=== PATIENT | male | born 1940 | race Caucasian/White ===

== ENCOUNTER → 2021-06-29 10:57 | Outpatient (CLI) | payer MEDICARE, OTHER, SELFPAY ==
--- NOTE | 2021-06-29 11:00 | DI.RAD.S_ITS ---
PROCEDURE: XR KNEE RT 3V INDICATIONS: R knee pain TECHNIQUE: 3 views of the knee were acquired. COMPARISON: None. FINDINGS: Bones: No fractures or dislocations. No suspicious bony lesions. There is moderate to severe medial and moderate lateral femorotibial joint space narrowing seen, with associated remodeling changes including subchondral sclerosis and osteophyte formation along the jointline. On the sunrise view, there is at least moderate medial patellofemoral joint space narrowing seen. Osteophyte formation can be seen along the margins of the patella. Soft tissues: There is a mild joint effusion. No suspicious soft tissue calcifications. IMPRESSION: Tricompartmental degenerative change, without an acute abnormality identified. Small joint effusion. If it would be helpful for clinical management decision making, please consider a dedicated, scheduled knee MRI for further evaluation (assuming that there is no contraindication). Dictated by: Kain Johnson M.D. on 06/29/2021 at 10:16 Approved by: Kain Johnson M.D. on 06/29/2021 at 10:17
== END ==
PROVIDERS: Family Provider Family Medicine; PCP Family Medicine; Referring Provider Student in an Organized Health Care Education/Training Program; Visit Provider Student in an Organized Health Care Education/Training Program
DX: M25.561 Pain in right knee (principal); M25.461 Effusion, right knee
CPT/HCPCS: 73562

== ENCOUNTER 2023-06-03 09:24 | Emergency (ER) | payer MEDICARE, OTHER, SELFPAY ==
[2023-06-03] VITALS (15 sets, daily range): BP systolic 99–158; BP diastolic 56–101; PULSE 62–82; RESP 14–32; TEMP 36.6; O2SAT 93–99; BMI 30.9
--- NOTE | 2023-06-03 10:04 | DI.RAD.S_ITS ---
PROCEDURE: XR CHEST 1V INDICATIONS: Shortness of breath TECHNIQUE: One view of the chest was acquired. COMPARISON: None. FINDINGS: Surgical changes and devices: None. Lungs and pleura: Lungs are clear. No pleural effusions or pneumothorax. Mediastinum: Mediastinal contours appear normal. Heart size is normal. Bones and chest wall: No suspicious bony lesions. Overlying soft tissues appear unremarkable. IMPRESSION: No acute cardiopulmonary abnormality is seen. Dictated by: Destin Sheets M.D. on 06/03/2023 at 11:10 Approved by: Destin Sheets M.D. on 06/03/2023 at 11:10
[2023-06-03 10:29] LABS: Add Manual Diff / Slide Review NO; Basophils Absolute Auto 100 /uL (0-100); Basophils Percent Auto 0.9 % (0-2); Eosinophils Absolute Auto 200 /uL (0-450); Eosinophils Percent Auto 1.8 % (2-4); Hematocrit 42.6 % (41-53); Hemoglobin 14.1 g/dL (13.5-17.5); Lymphocytes Absolute Auto 2500 /uL (1100-4500); Lymphocytes Percent Auto 20.9 % (25-40); Mean Corpuscular HGB Conc 33.2 % (30-36); Mean Corpuscular Hemoglobin 30.7 PG (26-34); Mean Corpuscular Volume 92.6 fL (80-100); Monocytes Absolute Auto 1200 /uL (0-900); Monocytes Percent Auto 10.4 % (3-14); Neutrophils Absolute Auto 7800 /uL (1500-7000); Platelet Count 196 X10^3/uL (150-400); Red Cell Distribution Width 13.5 % (11.6-14.8); White Blood Cell Count 11.8 X10^3/uL (4.5-11.0)
[2023-06-03 10:39] LABS: INR 2.1 (0.9-1.3); Prothrombin Time 24.8 SECONDS (9.4-12.5)
[2023-06-03 10:46] LABS: Lactate (Lactic Acid) 1.3 mmol/L (0.7-2.1)
[2023-06-03 10:47] LABS: Alanine Aminotransferase 38 IU/L (<50); Albumin 4.1 g/dL (3.5-5.0); Albumin Globulin Ratio 1.2 (1.0-2.8); Alkaline Phosphatase 275 U/L (38-126); Aspartate Aminotransferase 50 IU/L (17-59); BUN Creatinine Ratio 16.7 (6-22); Bilirubin Total 1.4 mg/dL (0.2-1.3); Blood Urea Nitrogen 16 mg/dL (9-20); Calcium 9.2 mg/dL (8.4-10.2); Carbon Dioxide 30 mmol/L (22-32); Chloride 99 mmol/L (98-107); Estimated Glomerular Filt Rate > 60 mL/min (>60); Globulin 3.4 g/dL (1.7-4.1); Glucose 130 mg/dL (80-110); HEMOLYSIS < 15 (0-50); Lipase 121 U/L (23-300); Potassium 4.2 mmol/L (3.4-5.1); Sodium 134 mmol/L (137-145); Total Protein 7.5 g/dL (6.3-8.2)
--- NOTE | 2023-06-03 10:56 | ED_ITS ---
HPI - General Adult General Chief complaint: Abdominal Pain Stated complaint: colon blockage per pt Time Seen by Provider: 06/03/23 10:38 Source: patient Mode of arrival: Ambulatory History of Present Illness HPI narrative: 82-year-old male with history of smoking, hypertension, hyperlipidemia, asthma, thrombocytopenia, atrial flutter, on Xarelto, metoprolol, Lasix presents with nausea on clarification. History clarified from triage. Patient states he was recently treated with Augmentin for presumed diverticulitis a few weeks ago. He states he took 1 week of Augmentin 3 weeks ago, finishing the course 2 weeks ago. Since then, he is not having abdominal pain on clarification, but rather does have early satiety and nausea with eating. He denies vomiting, fevers or chills, constipation or diarrhea, red or black in stool, lightheadedness or passing out, chest pain, shortness breath. However, he does have history of prior diverticulitis requiring surgery. He is on Xarelto. No recent CTs per patient. No other new concerns. He denies substantial alcohol use, smoking, or substantial NSAID use. Related Data Home Medications Medication Instructions Recorded Confirmed latanoprost 0.005 % eye drops 1 drp [facility] ##0 03/13/12 05/15/21 (Xalatan) magnesium oxide 400 mg (241.3 mg 400 mg PO ##0 07/16/16 05/15/21 magnesium) tablet cyanocobalamin (vitamin B-12) 1,000 mcg PO ##0 10/21/16 05/15/21 1,000 mcg tablet,extended release rivaroxaban 20 mg tablet (Xarelto) 20 mg PO DAILY 12/26/17 05/15/21 Previous Rx's Medication Instructions Recorded fluticasone 250 mcg-salmeterol 50 1 puff INH BID #3 puffs 10/20/16 mcg/dose blistr powdr for inhalation (Advair Diskus) lisinopril 20 mg tablet 20 mg PO QDAY #90 tabs 07/14/16 metoprolol tartrate 50 mg tablet 50 mg PO BID #180 tabs 07/14/16 potassium chloride 10 mEq 20 meq (2 x 10 mEq) PO QDAY #180 07/14/16 tablet,extended release (K-Tab) tabs allopurinol 300 mg tablet 300 mg PO QDAY #90 tabs 08/18/16 furosemide 40 mg tablet 40 mg PO QDAY #90 tabs 10/11/16 atorvastatin 20 mg tablet (Lipitor) 20 mg PO QDAY #30 tabs 12/13/16 ondansetron 4 mg disintegrating 4 mg PO Q8H #10 tabs 06/03/23 tablet ondansetron 4 mg disintegrating 4 mg PO Q8H #15 tabs 06/03/23 tablet Allergies Allergy/AdvReac Type Severity Reaction Status Date / Time No Known Drug Allergies Allergy Unverified 06/29/21 10:31 Review of Systems Review of Systems Narrative: Constitutional: no fever, no chills Eyes: no visual disturbance, no discharge Ears, Nose, Mouth, Throat: no rhinorrhea, no sore throat Cardiovascular: no chest pain, no palpitations Respiratory: no cough, no shortness of breath Gastrointestinal: no abdominal pain, no vomiting, no diarrhea Genitourinary: no dysuria, no hematuria Musculoskeletal: no back pain, no neck stiffness Skin: no rash, no wound Neurological: no focal weakness, no focal numbness Patient History Surgical History Status post knee surgery Family History Father Heart disease Mother Heart disease Social History Smoking Status: Never smoker alcohol intake: current Smoking Status: Never smoker Substance Use Type: does not use Exam Narrative Exam Narrative: Const: no acute distress, non toxic appearing; calm, conversant, pleasant Eyes: PERRLA, EOMI ENT: mucous membranes moist Neck: supple, non-tender Resp: no respiratory distress, clear to auscultation bilaterally Card: regular rate and rhythm, no murmurs Abd: non tender diffusely, no rigidity or rebound or guarding Back: no T or L spine tenderness, no CVA tenderness bilaterally Extrem: no deformities, no swelling bilateral lower extremities Neuro: ANOx4, professor of philosophy grossly intact, grossly intact sensation and strength all extremities Skin: no rash, warm and dry Initial Vital Signs Initial Vital Signs: Vital Signs Temperature 97.8 F 06/03/23 09:45 Pulse Rate 82 06/03/23 09:45 Respiratory Rate 24 06/03/23 09:45 Blood Pressure 139/99 H 03/01/24 09:45 Pulse Oximetry 97 06/03/23 09:45 Oxygen Delivery Method Room Air 06/03/23 09:45 Course Course Course Narrative: This presentation is most suggestive of gastritis, peptic ulcer disease, possibly recurring diverticulitis, though I have considered a broad differential including but not limited to bowel obstruction, perforation, abscess, pancreatitis, medication side effect, enteritis, among others. While he has benign abdomen here currently, given his prior history of diverticulitis requiring surgery, I do feel he merits CT imaging. I am obtaining labs, urinalysis, with anticipation of CT. I am giving fluids. He declines nausea or pain medications currently. Patient is stable. Patient afebrile and well perfused. Labs notable for leukocytosis, no anemia or thrombocytopenia. INR elevated. Borderline hyponatremia, with elevated bilirubin, alkaline phosphatase present on chemistry, with normal AST and ALT and no abdominal tenderness. Troponin reassuring. BNP mildly elevated. Lipase reassuring. Urine without clear evidence of infection, in the setting of no urinary symptoms. CT however shows what is very concerning for metastatic pancreatic cancer. At 2:55PM, I spoke with Oncology Dr. Cardenas, reviewing case; he states he will see patient outpatient soon. He is with [facility]. I discussed patient's case with Oncology, and updated patient. We are working to arrange close follow-up for him. He understands importance of calling [facility] today, whose physician team I spoke with. CXR read by radiology below: FINDINGS: Surgical changes and devices: None. Lungs and pleura: Lungs are clear. No pleural effusions or pneumothorax. Mediastinum: Mediastinal contours appear normal. Heart size is normal. Bones and chest wall: No suspicious bony lesions. Overlying soft tissues appear unremarkable. IMPRESSION: No acute cardiopulmonary abnormality is seen. Dictated by: Destin Sheets M.D. on 06/03/2023 at 11:10 CT A/P (copy given to pt): FINDINGS: Image quality: Diagnostic Lower chest: Numerous small partially seen pulmonary nodules. Right pleural thickening. No pleural effusions. Prominent periesophageal lymph nodes, possibly reactive. Small hiatal hernia. Liver: Numerous small liver lesions compatible with metastatic disease. Gallbladder and biliary system: Unremarkable, nondilated Pancreas: Pancreatic tail 3.1 cm mass. Spleen: Unremarkable Adrenals: No nodules Kidneys: Moderately atrophic bilaterally. No hydronephrosis. Vessels and lymph nodes: There are borderline enlarged upper abdominal and retroperitoneal lymph nodes, for example at the mina hepatis measuring 0.8 cm in short axis. No abdominal aortic aneurysm. Bowel and peritoneum: No evidence of small bowel obstruction. Colonic diverticula. There are bowel suture lines. No pathologic ascites Body wall: Postsurgical changes Pelvis: Bladder is unremarkable. Heterogeneous, mildly enlarged prostate, correlate with PSA Bones: Degenerative findings, no acute or suspicious findings. 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 Indeterminate borderline enlarged upper abdominal lymph nodes are present. Indeterminate small pulmonary nodules are seen at the lung bases. Consider oncologic follow-up for staging. Dictated by: Jose Luis Pavon M.D. on 06/03/2023 at 11:48 On review, I am concerned metastatic pancreatic cancer is likely driving patient's presentation. I prescribed him Zofran, and he understands importance of strict follow up with return precautions. He is tolerating p.o., currently has benign abdomen, and appears comfortable. Discharged in stable condition in this setting. Repeat exam and vital signs reassuring. Questions answered. Plan reviewed. Patient discharged in stable condition. Orders Ordered: ED Orders 06/03/23 10:04 XR chest 1V Stat Measure peak expiratory flow ONCE RT Consult Eval and Treat NOW 06/03/23 10:10 EKG-12 Lead Stat 06/03/23 10:20 Complete Blood Count AUTO DIFF Stat Comprehensive Metabolic Panel Stat Lactate (Lactic Acid) Stat Lipase Stat NT-proBNP (BNP-Adult 18+) Stat Prothrombin Time INR Stat Troponin I Stat 06/03/23 11:10 CT abdomen pelvis w con Stat 06/03/23 11:21 Urine Culture Stat Urine Microscopic Stat Discontinued Medications Sodium Chloride (Normal Saline 0.9%) 1,000 mls @ 1,000 mls/hr IV BOLUS ONE Stop: 06/03/23 12:10 Last Infusion: 06/03/23 12:22 Dose: Infused Documented By: Admin: 06/03/23 11:13 Dose: 1,000 mls/hr Documented By: LILIA Ondansetron HCl (Ondansetron 4 Mg Odt) 4 mg PO NOW PRN PRN Reason: Nausea And Vomiting Ondansetron HCl (Ondansetron 4 Mg/2 Ml Inj) 4 mg IV NOW PRN PRN Reason: Nausea And Vomiting Ondansetron HCl (Ondansetron 4 Mg Odt Prepack) 1 bottle MISC DIRECTED ONE Stop: 06/03/23 15:14 Last Admin: 06/03/23 15:29 Dose: 1 bottle Documented By: CHEVY Vital Signs Vital signs: Vital Signs - 8 hr 06/03/23 11:00 06/03/23 11:00 06/03/23 11:09 Pulse Rate 70 Respiratory Rate 22 Blood Pressure 99/67 128/73 Pulse Oximetry 96 Oxygen Delivery Method Room Air 06/03/23 11:09 06/03/23 11:26 06/03/23 11:26 Pulse Rate 71 67 Respiratory Rate 32 H 14 Blood Pressure 131/68 Pulse Oximetry 95 97 Oxygen Delivery Method 06/03/23 11:30 06/03/23 11:30 06/03/23 12:00 Pulse Rate 66 62 Respiratory Rate 14 16 Blood Pressure 117/69 Pulse Oximetry 97 98 Oxygen Delivery Method Room Air 06/03/23 12:00 06/03/23 12:30 06/03/23 12:30 Pulse Rate 64 Respiratory Rate 16 Blood Pressure 138/65 138/64 Pulse Oximetry 97 Oxygen Delivery Method Room Air 06/03/23 13:35 06/03/23 13:36 06/03/23 13:36 Pulse Rate 64 66 Respiratory Rate 28 H 21 Blood Pressure 137/71 Pulse Oximetry 93 98 Oxygen Delivery Method Room Air 06/03/23 14:00 06/03/23 14:00 06/03/23 14:30 Pulse Rate 64 62 Respiratory Rate 16 16 Blood Pressure 158/72 H Pulse Oximetry 98 99 Oxygen Delivery Method Room Air 06/03/23 14:30 Pulse Rate Respiratory Rate Blood Pressure 151/77 H Pulse Oximetry Oxygen Delivery Method Medical Decision Making Lab Data 06/03/23 10:20 06/03/23 10:20 Labs: Lab Results 06/03/23 06/03/23 Range/Units 10:20 11:21 WBC 11.8 H (4.5-11.0) X10^3/uL RBC 4.60 (4.5-5.9) X10^6/uL Hgb 14.1 (13.5-17.5) g/dL Hct 42.6 (41-53) % MCV 92.6 (80-100) fL MCH 30.7 (26-34) PG MCHC 33.2 (30-36) % RDW 13.5 (11.6-14.8) % Plt Count 196 (150-400) X10^3/uL Neut % (Auto) 66.0 (50-75) % Lymph % (Auto) 20.9 L (25-40) % [place] % (Auto) 10.4 (3-14) % Eos % (Auto) 1.8 L (2-4) % Baso % (Auto) 0.9 (0-2) % Neut # (Auto) 7800 H (1563-9666) /uL Lymph # (Auto) 2500 (6758-3321) /uL [place] # (Auto) 1200 H (0-900) /uL Eos # (Auto) 200 (0-450) /uL Baso # (Auto) 100 (0-100) /uL PT 24.8 H (9.4-12.5) SECONDS INR 2.1 H (0.9-1.3) Sodium 134 L (137-145) mmol/L Potassium 4.2 (3.4-5.1) mmol/L Chloride 99 (98-107) mmol/L Carbon Dioxide 30 (22-32) mmol/L BUN 16 (9-20) mg/dL Creatinine 0.96 (0.66-1.25) mg/dL Estimated GFR > 60 (>60) mL/min BUN/Creatinine Ratio 16.7 (6-22) Glucose 130 H (80-110) mg/dL Lactate 1.3 (0.7-2.1) mmol/L Calcium 9.2 (8.4-10.2) mg/dL Total Bilirubin 1.4 H (0.2-1.3) mg/dL AST 50 (17-59) IU/L ALT 38 (<50) IU/L Alkaline Phosphatase 275 H (38-126) U/L Troponin I < 0.012 (0.01-0.034) ng/mL NT-Pro-B Natriuret Pep 457 H (<450) pg/mL Total Protein 7.5 (6.3-8.2) g/dL Albumin 4.1 (3.5-5.0) g/dL Globulin 3.4 (1.7-4.1) g/dL Albumin/Globulin Ratio 1.2 (1.0-2.8) Lipase 121 (23-300) U/L Urine RBC None seen (0-5/HPF) Urine WBC 0-1/hpf (0-5/HPF) Ur Squamous Epith Cells 1-5 /hpf (0-5/HPF) Urine Bacteria None seen (None) Hyaline Casts 10-30/lpf (None) Ur Culture Indicated? Specimen cultured Vol Urine Centrifuged Low vol <10ml (spun) A Urine Dip Bedside Urine Glucose Negative Bedside Urine Bilirubin - Negative Bedside Urine Ketone +/- 5 Urine Specific [place] 1.020 Bedside Urine Occult Blood - Negative Bedside Urine pH 6.0 Bedside Urine Protein ++ 100 Bedside Urine Urobilinogen - Negative Bedside Urine Nitrite - Negative Bedside Urine Leukocytes +/- 15 Esterase Point of care testing: Urine Dip Bedside Urine Glucose Negative Bedside Urine Bilirubin - Negative Bedside Urine Ketone +/- 5 Urine Specific [place] 1.020 Bedside Urine Occult Blood - Negative Bedside Urine pH 6.0 Bedside Urine Protein ++ 100 Bedside Urine Urobilinogen - Negative Bedside Urine Nitrite - Negative Bedside Urine Leukocytes +/- 15 Esterase Discharge Plan Departure Patient Disposition: Home Clinical Impression: Abnormal finding on CT scan Instructions: DI for Abdominal Pain-Adult Activity Restrictions/Additional Instructions: It was a pleasure taking care of you today. It is important to fully read and understand the below. Please ask us if you have any questions. We see a very important incidental finding on your CT scan today. I spoke with Dr. Cardenas of [facility] today, who wants to see you. I tried to send a referral but we are having some technical issues. PLEASE CALL THEM AND STATE DR. DENNY SPOKE WITH DR. CARDENAS ABOUT YOU. They should see you soon. Please take your attached CT. No tests or assessments are perfect, and your condition could cap coverer time. If your symptoms change or worsen, it is very important you immediately seek medical care. If you have any new or worsening pain, []shortness of breath, fever, vomiting, confusion, numbness, weakness, or anything else that concerns you, please immediately seek medical care. If you have been prescribed any medications: please read the drug package inserts on how to properly use the medication and any potential side effects. If you had labs (blood tests) or imaging (CT scan or x-rays) done during your visit: please follow up on the results of these with your primary care doctor, as discussed. In addition, please know the results we received today may be preliminary. Our usual practice is to follow up on tests within a few days of a patient's discharge from the Emergency Department and notify you of any changes. These may lead to changes to your treatment plan. However, the best way to obtain and interpret these test results is through your Primary Care Provider. If you need to update your contact information, please stop by the it desktop support technician and alert the Registration personnel before you leave the Emergency Department. Thank you for the opportunity to participate in your healthcare. We are always here and happy to see you in the future. --- PLEASE TAKE THE ATTACHED IMAGING TO YOUR DOCTORS: FINDINGS: Image quality: Diagnostic Lower chest: Numerous small partially seen pulmonary nodules. Right pleural thickening. No pleural effusions. Prominent periesophageal lymph nodes, possibly reactive. Small hiatal hernia. Liver: Numerous small liver lesions compatible with metastatic disease. Gallbladder and biliary system: Unremarkable, nondilated Pancreas: Pancreatic tail 3.1 cm mass. Spleen: Unremarkable Adrenals: No nodules Kidneys: Moderately atrophic bilaterally. No hydronephrosis. Vessels and lymph nodes: There are borderline enlarged upper abdominal and retroperitoneal lymph nodes, for example at the mina hepatis measuring 0.8 cm in short axis. No abdominal aortic aneurysm. Bowel and peritoneum: No evidence of small bowel obstruction. Colonic diverticula. There are bowel suture lines. No pathologic ascites Body wall: Postsurgical changes Pelvis: Bladder is unremarkable. Heterogeneous, mildly enlarged prostate, correlate with PSA Bones: Degenerative findings, no acute or suspicious findings. 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 Indeterminate borderline enlarged upper abdominal lymph nodes are present. Indeterminate small pulmonary nodules are seen at the lung bases. Consider oncologic follow-up for staging. Dictated by: Jose Luis Pavon M.D. on 06/03/2023 at 11:48 Prescriptions: New ondansetron 4 mg tablet,disintegrating 4 mg PO Q8H Qty: 10 0RF ondansetron 4 mg tablet,disintegrating 4 mg PO Q8H Qty: 15 0RF No Action rivaroxaban [Xarelto] 20 mg tablet 20 mg PO DAILY latanoprost [Xalatan] 0.005 % drops 1 drp OPHTH HS Qty: 0 fluticasone propion-salmeterol [Advair Diskus] 250 MCG/50 MCG blister with device 1 puff INH BID Qty: 3 1RF lisinopril 20 MG tablet 20 mg PO QDAY Qty: 90 1RF potassium chloride [K-Tab] 10 MEQ tablet extended release 20 meq PO QDAY Qty: 180 1RF metoprolol tartrate 50 MG tablet 50 mg PO BID Qty: 180 1RF magnesium oxide 400 MG tablet 400 mg PO Qty: 0 allopurinol 300 MG tablet 300 mg PO QDAY Qty: 90 1RF furosemide 40 MG tablet 40 mg PO QDAY Qty: 90 1RF cyanocobalamin (vitamin B-12) 1,000 MCG tablet extended release 1,000 mcg PO Qty: 0 atorvastatin [Lipitor] 20 MG tablet 20 mg PO QDAY Qty: 30 0RF Referrals: Marco Antonio Islas MD [Primary Care Provider] - Stand Alone Forms: Patient Portal/API
[2023-06-03 11:00] LABS: NT-proBNP (BNP-Adult 18+) 457 pg/mL (<450); Troponin I < 0.012 ng/mL (0.01-0.034)
--- NOTE | 2023-06-03 11:10 | DI.CT.S_ITS ---
PROCEDURE: CT ABDOMEN PELVIS W CON INDICATIONS: abdominal discomfort, nausea, recent diverticulitis treatmen TECHNIQUE: After the administration of intravenous contrast, axial sections acquired from the lung bases to the pubic symphysis. Coronal and sagittal reformats were performed. For radiation dose reduction, the following was used: automated exposure control, adjustment of mA and/or kV according to patient size. COMPARISON: None. FINDINGS: Image quality: Diagnostic Lower chest: Numerous small partially seen pulmonary nodules. Right pleural thickening. No pleural effusions. Prominent periesophageal lymph nodes, possibly reactive. Small hiatal hernia. Liver: Numerous small liver lesions compatible with metastatic disease. Gallbladder and biliary system: Unremarkable, nondilated Pancreas: Pancreatic tail 3.1 cm mass. Spleen: Unremarkable Adrenals: No nodules Kidneys: Moderately atrophic bilaterally. No hydronephrosis. Vessels and lymph nodes: There are borderline enlarged upper abdominal and retroperitoneal lymph nodes, for example at the mina hepatis measuring 0.8 cm in short axis. No abdominal aortic aneurysm. Bowel and peritoneum: No evidence of small bowel obstruction. Colonic diverticula. There are bowel suture lines. No pathologic ascites Body wall: Postsurgical changes Pelvis: Bladder is unremarkable. Heterogeneous, mildly enlarged prostate, correlate with PSA Bones: Degenerative findings, no acute or suspicious findings. 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 Indeterminate borderline enlarged upper abdominal lymph nodes are present. Indeterminate small pulmonary nodules are seen at the lung bases. Consider oncologic follow-up for staging. Dictated by: Jose Luis Pavon M.D. on 06/03/2023 at 11:48 Approved by: Jose Luis Pavon M.D. on 06/03/2023 at 11:54
[2023-06-03] MEDS: SODIUM CHLORIDE 0.9% 1,000 ML 1000 ML IV (11:13)
[2023-06-03 11:36] LABS: Urine Volume Low Vol <10mL (spun)
[2023-06-03 11:40] LABS: Bacteria Urine None Seen; Culture Indicated Urine Specimen Cultured; Hyaline Casts Urine 10-30/LPF; RBC Urine None Seen (0-5/HPF); Squamous Epithelial Cell Urine 1-5 /HPF (0-5/HPF); WBC Urine 0-1/HPF (0-5/HPF)
[2023-06-03] MEDS: ONDANSETRON 4 MG ODT PREPACK 1 BOTTLE MISC (15:29)
== END 2023-06-03 15:30 | disposition home or self-care (01) ==
PROVIDERS: Emergency Provider Emergency Medicine; Family Provider Family Medicine; PCP Family Medicine
DX: R93.89 Abnormal findings on diagnostic imaging of other specified body structures (principal); R10.9 Unspecified abdominal pain; R06.02 Shortness of breath; Z79.01 Long term (current) use of anticoagulants
CPT/HCPCS: 36415; 71045; 74177; 80053; 81003; 81015; 83605; 83690; 83880; 84484; 85025; 85610; 87086; 93005; 96360; 99284

== ENCOUNTER 2023-06-08 11:41 | Emergency (ER) | payer MEDICARE, OTHER, SELFPAY ==
[2023-06-08] VITALS (12 sets, daily range): BP systolic 98–134; BP diastolic 53–99; PULSE 56–73; RESP 16–18; TEMP 36.3–36.8; O2SAT 94–97; BMI 30.3
[2023-06-08 12:05] LABS: Urine Volume 10mL (spun)
[2023-06-08 12:08] LABS: Bacteria Urine None Seen; Culture Indicated Urine Cult Not Indicated; Hyaline Casts Urine 0-1/LPF; Mucus Urine 1+ (Negative); RBC Urine None Seen (0-5/HPF); Squamous Epithelial Cell Urine None Seen (0-5/HPF); WBC Urine None Seen (0-5/HPF)
[2023-06-08 12:22] LABS: Add Manual Diff / Slide Review NO; Basophils Absolute Auto 100 /uL (0-100); Eosinophils Absolute Auto 400 /uL (0-450); Eosinophils Percent Auto 2.5 % (2-4); Hematocrit 43.6 % (41-53); Hemoglobin 14.6 g/dL (13.5-17.5); Lymphocytes Absolute Auto 2800 /uL (1100-4500); Lymphocytes Percent Auto 18.7 % (25-40); Mean Corpuscular HGB Conc 33.4 % (30-36); Mean Corpuscular Hemoglobin 31.3 PG (26-34); Mean Corpuscular Volume 93.7 fL (80-100); Monocytes Absolute Auto 1600 /uL (0-900); Monocytes Percent Auto 10.8 % (3-14); Neutrophils Absolute Auto 9800 /uL (1500-7000); Platelet Count 214 X10^3/uL (150-400); Red Blood Cell Count 4.66 X10^6/uL (4.5-5.9); Red Cell Distribution Width 13.4 % (11.6-14.8); White Blood Cell Count 14.7 X10^3/uL (4.5-11.0)
[2023-06-08 12:29] LABS: Alanine Aminotransferase 60 IU/L (<50); Albumin 4.3 g/dL (3.5-5.0); Albumin Globulin Ratio 1.2 (1.0-2.8); Alkaline Phosphatase 314 U/L (38-126); Aspartate Aminotransferase 68 IU/L (17-59); BUN Creatinine Ratio 19.7 (6-22); Bilirubin Total 1.3 mg/dL (0.2-1.3); Blood Urea Nitrogen 24 mg/dL (9-20); Calcium 9.5 mg/dL (8.4-10.2); Carbon Dioxide 33 mmol/L (22-32); Chloride 96 mmol/L (98-107); Estimated Glomerular Filt Rate 58 mL/min (>60); Globulin 3.6 g/dL (1.7-4.1); Glucose 133 mg/dL (80-110); HEMOLYSIS < 15 (0-50); Lipase 188 U/L (23-300); Potassium 3.6 mmol/L (3.4-5.1); Sodium 137 mmol/L (137-145); Total Protein 7.9 g/dL (6.3-8.2)
--- NOTE | 2023-06-08 12:50 | DI.CT.S_ITS ---
PROCEDURE: CT ABDOMEN PELVIS W CON INDICATIONS: IV contrast only/pancreatic cancer/Abdominal distention TECHNIQUE: After the administration of intravenous contrast, axial sections acquired from the lung bases to the pubic symphysis. Coronal and sagittal reformats were performed. For radiation dose reduction, the following was used: automated exposure control, adjustment of mA and/or kV according to patient size. COMPARISON: [facility], CT, CT ABDOMEN PELVIS W CON, 06/03/2023, 11:25. FINDINGS: Image quality: Diagnostic Lower chest: Small pulmonary nodules again seen. No pleural effusions. Small right Bochdalek's hernia. Mild nonspecific distal esophageal wall thickening is present. Normal heart size. Liver: There are numerous metastatic liver lesions as before Gallbladder and biliary system: Unremarkable, nondilated Pancreas: Pancreatic tail 3.1 cm mass again seen Spleen: Nonenlarged Adrenals: No discrete nodules Kidneys: [id number] atrophy. No hydronephrosis Vessels and lymph nodes: Prominent upper abdominal lymph nodes are present, indeterminate, also seen previously. No aneurysmal vessel identified Bowel and peritoneum: No evidence of small bowel obstruction. Fecal loading is mild and similar to prior bowel suture lines are present. Body wall: Postsurgical changes and mild rectus diastasis Pelvis: Bladder is unremarkable. There is thickening at the neck, which may be related to prostate transitional zone hypertrophy. The prostate is not well evaluated on this study. Consider MRI if needed Bones: Degenerative changes. IMPRESSION: No acute changes compared to 06/03/2023. No small bowel obstruction. Mild fecal loading is similar to prior. There are postsurgical bowel changes. No abscess. Pancreatic tail mass and metastatic liver lesions again seen. There are prominent upper abdominal lymph nodes which are indeterminate, as well as small lung nodules. Other findings above. Dictated by: Jose Luis Pavon M.D. on 06/08/2023 at 13:54 Approved by: Jose Luis Pavon M.D. on 06/08/2023 at 14:03
[2023-06-08] MEDS: SODIUM CHLORIDE 0.9% 1,000 ML 1000 ML IV (13:19)
--- NOTE | 2023-06-08 13:25 | ED_ITS ---
HPI - Abdominal Pain General Chief Complaint: Abdominal Pain Stated Complaint: stomach blocked no bowel movement Time Seen by Provider: 06/08/23 12:46 Source: patient Mode of arrival: Ambulatory History of Present Illness HPI narrative: Patient here for complaints decreased bowel movements since Tuesday. Patient just seen here recently and CT showed new finding of pancreatic cancer. Patient has appointment next Tuesday with oncology services. He denies denies any abdominal pain no nausea or vomiting diarrhea. He is concerned that he is constipated. Again no pain. Last bowel movement was Tuesday. Patient denies any back pain or chest pain. Related Data Home Medications Medication Instructions Recorded Confirmed latanoprost 0.005 % eye drops 1 drp [facility] HS ##0 03/13/12 05/15/21 (Xalatan) magnesium oxide 400 mg (241.3 mg 400 mg PO ##0 07/16/16 05/15/21 magnesium) tablet cyanocobalamin (vitamin B-12) 1,000 mcg PO ##0 10/21/16 05/15/21 1,000 mcg tablet,extended release rivaroxaban 20 mg tablet (Xarelto) 20 mg PO DAILY 12/26/17 05/15/21 Previous Rx's Medication Instructions Recorded fluticasone 250 mcg-salmeterol 50 1 puff INH BID #3 puffs 01/21/ mcg/dose blistr powdr for inhalation (Advair Diskus) lisinopril 20 mg tablet 20 mg PO QDAY #90 tabs 07/14/16 metoprolol tartrate 50 mg tablet 50 mg PO BID #180 tabs 07/14/16 potassium chloride 10 mEq 20 meq (2 x 10 mEq) PO QDAY #180 07/14/16 tablet,extended release (K-Tab) tabs allopurinol 300 mg tablet 300 mg PO QDAY #90 tabs 08/18/16 furosemide 40 mg tablet 40 mg PO QDAY #90 tabs 10/11/16 atorvastatin 20 mg tablet (Lipitor) 20 mg PO QDAY #30 tabs 12/13/16 ondansetron 4 mg disintegrating 4 mg PO Q8H #10 tabs 06/03/23 tablet ondansetron 4 mg disintegrating 4 mg PO Q8H #15 tabs 06/03/23 tablet ondansetron 4 mg disintegrating 4 mg PO Q8H PRN nausea and 06/08/23 tablet vomiting #20 tabs Allergies Allergy/AdvReac Type Severity Reaction Status Date / Time No Known Drug Allergies Allergy Unverified 06/29/21 10:31 Review of Systems Review of Systems Narrative: GENERAL: negative chills, fatigue, malaise, fever, sweats. HEENT: negative sinus pain, ear pain, sore throat RESPIRATORY: negative dyspnea, cough CARDIOVASCULAR: negative chest pain, palpitations GASTROINTESTINAL: negative nausea, vomiting, abdominal pain : negative dysuria, frequency, hematuria MUSCULOSKELETAL: negative muscle or bony pain SKIN: negative rash, skin lesions NEUROLOGIC: negative weakness, numbness ROS Unobtainable: All systems reviewed & are unremarkable except as noted in HPI and below Patient History Surgical History Status post knee surgery Family History Father Heart disease Mother Heart disease Social History Smoking Status: Never smoker alcohol intake: current Smoking Status: Never smoker Substance Use Type: does not use Exam Narrative Exam Narrative: GENERAL: in no distress, not toxic not dyspneic HEAD: Normocephalic. EYES: Pupils equal round ENT: Mucous membranes moist. NECK: Trachea midline. CARDIOVASCULAR: Regular rate and rhythm RESPIRATORY: Clear to auscultation. Breath sounds equal bilaterally. No wheezes, rales, or rhonchi. GASTROINTESTINAL: Abdomen soft, non-tender, bowel sounds are present. No peritoneal signs. No pain out of proportion to exam. EXTREMITIES: No gross deformities. BACK: No flank tenderness. NEURO: AOx4. SKIN: Warm and dry PSYCH: Not anxious, is cooperative Initial Vital Signs Initial Vital Signs: Vital Signs Temperature 97.4 F L 06/08/23 11:43 Pulse Rate 72 06/08/23 11:43 Respiratory Rate 18 06/08/23 11:43 Blood Pressure 134/99 H 06/08/23 11:43 Pulse Oximetry 97 06/08/23 11:43 Oxygen Delivery Method Room Air 06/08/23 11:43 Course Orders Ordered: ED Orders 06/08/23 11:50 Urine Microscopic Stat 06/08/23 12:10 Complete Blood Count AUTO DIFF Stat Comprehensive Metabolic Panel Stat Lipase Stat 06/08/23 12:38 EKG-12 Lead Stat 06/08/23 12:50 CT abdomen pelvis w con Stat Discontinued Medications Acetaminophen (Acetaminophen 325 Mg Tablet) 975 mg PO NOW ONE Stop: 06/08/23 15:09 Sodium Chloride (Normal Saline 0.9%) 1,000 mls @ 1,000 mls/hr IV BOLUS ONE Stop: 06/08/23 13:49 Last Infusion: 06/08/23 14:50 Dose: Infused Documented By: Admin: 06/08/23 13:19 Dose: 1,000 mls/hr Documented By: IRMA Ondansetron HCl (Ondansetron 4 Mg/2 Ml Inj) 4 mg IV NOW PRN PRN Reason: Nausea And Vomiting Ondansetron HCl (Ondansetron 4 Mg Odt) 4 mg PO NOW PRN PRN Reason: Nausea And Vomiting Vital Signs Vital signs: Vital Signs - 8 hr 06/08/23 11:43 06/08/23 11:55 06/08/23 11:56 Temperature 97.4 F L Pulse Rate 72 73 68 Respiratory Rate 18 Blood Pressure 134/99 H Pulse Oximetry 97 97 Oxygen Delivery Method Room Air 06/08/23 11:56 06/08/23 12:00 06/08/23 12:00 Temperature Pulse Rate 66 Respiratory Rate Blood Pressure 119/74 118/59 L Pulse Oximetry 94 Oxygen Delivery Method Room Air 06/08/23 12:30 06/08/23 12:30 06/08/23 13:00 Temperature Pulse Rate 60 65 Respiratory Rate Blood Pressure 99/57 L Pulse Oximetry 97 97 Oxygen Delivery Method Room Air 06/08/23 13:00 06/08/23 13:32 06/08/23 13:33 Temperature Pulse Rate 64 Respiratory Rate Blood Pressure 98/53 L 130/76 Pulse Oximetry 94 Oxygen Delivery Method Room Air 06/08/23 13:33 06/08/23 14:00 06/08/23 14:00 Temperature Pulse Rate 64 60 Respiratory Rate Blood Pressure 133/69 Pulse Oximetry 94 95 Oxygen Delivery Method Room Air Room Air 06/08/23 14:30 06/08/23 14:30 06/08/23 14:30 Temperature 98.2 F Pulse Rate 60 Respiratory Rate Blood Pressure 134/69 Pulse Oximetry 97 Oxygen Delivery Method 06/08/23 14:35 06/08/23 14:40 Temperature Pulse Rate 56 L 63 Respiratory Rate 16 Blood Pressure Pulse Oximetry 97 97 Oxygen Delivery Method Room Air MDM - Abdominal Pain Lab Data 06/08/23 12:10 06/08/23 12:10 Labs: Lab Results 06/08/23 06/08/23 Range/Units 11:50 12:10 WBC 14.7 H (4.5-11.0) X10^3/uL RBC 4.66 (4.5-5.9) X10^6/uL Hgb 14.6 (13.5-17.5) g/dL Hct 43.6 (41-53) % MCV 93.7 (80-100) fL MCH 31.3 (26-34) PG MCHC 33.4 (30-36) % RDW 13.4 (11.6-14.8) % Plt Count 214 (150-400) X10^3/uL Neut % (Auto) 67.0 (50-75) % Lymph % (Auto) 18.7 L (25-40) % [place] % (Auto) 10.8 (3-14) % Eos % (Auto) 2.5 (2-4) % Baso % (Auto) 1.0 (0-2) % Neut # (Auto) 9800 H (6495-3564) /uL Lymph # (Auto) 2800 (3045-4891) /uL [place] # (Auto) 1600 H (0-900) /uL Eos # (Auto) 400 (0-450) /uL Baso # (Auto) 100 (0-100) /uL Sodium 137 (137-145) mmol/L Potassium 3.6 (3.4-5.1) mmol/L Chloride 96 L (98-107) mmol/L Carbon Dioxide 33 H (22-32) mmol/L BUN 24 H (9-20) mg/dL Creatinine 1.22 (0.66-1.25) mg/dL Estimated GFR 58 L (>60) mL/min BUN/Creatinine Ratio 19.7 (6-22) Glucose 133 H (80-110) mg/dL Calcium 9.5 (8.4-10.2) mg/dL Total Bilirubin 1.3 (0.2-1.3) mg/dL AST 68 H (17-59) IU/L ALT 60 H (<50) IU/L Alkaline Phosphatase 314 H (38-126) U/L Total Protein 7.9 (6.3-8.2) g/dL Albumin 4.3 (3.5-5.0) g/dL Globulin 3.6 (1.7-4.1) g/dL Albumin/Globulin Ratio 1.2 (1.0-2.8) Lipase 188 D (23-300) U/L Urine RBC None seen (0-5/HPF) Urine WBC None seen (0-5/HPF) Ur Squamous Epith Cells None seen (0-5/HPF) Urine Bacteria None seen (None) Hyaline Casts 0-1/lpf (None) Urine Mucus 1+ H (Negative) Ur Culture Indicated? Cult not indicated Vol Urine Centrifuged 10ml (spun) Point of care testing: Urine Dip Bedside Urine Glucose Negative Bedside Urine Bilirubin - Negative Bedside Urine Ketone - Negative Urine Specific [place] 1.030 Bedside Urine Occult Blood - Negative Bedside Urine pH 5.5 Bedside Urine Protein + 30 Bedside Urine Urobilinogen - Negative Bedside Urine Nitrite - Negative Bedside Urine Leukocytes - Negative Esterase Imaging Data CT scan - abdomen/pelvis: Radiologist's Impression: [address] [address] [address] Scan Report Signed Patient: Lalito Uriarte MR#: [id number] : 1940 Acct:[id number] Age/Sex: 82 / M Date of Service: 06/08/23 Loc: ED Accession Number: [id number] Procedure: CT abdomen pelvis w con Ordering Provider: Luis Miguel Hall MD PROCEDURE: CT ABDOMEN PELVIS W CON INDICATIONS: IV contrast only/pancreatic cancer/Abdominal distention TECHNIQUE: After the administration of intravenous contrast, axial sections acquired from the lung bases to the pubic symphysis. Coronal and sagittal reformats were performed. For radiation dose reduction, the following was used: automated exposure control, adjustment of mA and/or kV according to patient size. COMPARISON: [facility], CT, CT ABDOMEN PELVIS W CON, 06/03/2023, 11:25. FINDINGS: Image quality: Diagnostic Lower chest: Small pulmonary nodules again seen. No pleural effusions. Small right Bochdalek's hernia. Mild nonspecific distal esophageal wall thickening is present. Normal heart size. Liver: There are numerous metastatic liver lesions as before Gallbladder and biliary system: Unremarkable, nondilated Pancreas: Pancreatic tail 3.1 cm mass again seen Spleen: Nonenlarged Adrenals: No discrete nodules Kidneys: [id number] atrophy. No hydronephrosis Vessels and lymph nodes: Prominent upper abdominal lymph nodes are present, indeterminate, also seen previously. No aneurysmal vessel identified Bowel and peritoneum: No evidence of small bowel obstruction. Fecal loading is mild and similar to prior bowel suture lines are present. Body wall: Postsurgical changes and mild rectus diastasis Pelvis: Bladder is unremarkable. There is thickening at the neck, which may be related to prostate transitional zone hypertrophy. The prostate is not well evaluated on this study. Consider MRI if needed Bones: Degenerative changes. IMPRESSION: No acute changes compared to 06/03/2023. No small bowel obstruction. Mild fecal loading is similar to prior. There are postsurgical bowel changes. No abscess. Pancreatic tail mass and metastatic liver lesions again seen. There are prominent upper abdominal lymph nodes which are indeterminate, as well as small lung nodules. Other findings above. Dictated by: Jose Luis Pavon M.D. on 06/08/2023 at 13:54 Approved by: Jose Luis Pavon M.D. on 06/08/2023 at 14:03 [facility] Narrative Medical decision making narrative: Patient here for complaints decreased bowel movements since Tuesday. Patient just seen here recently and CT showed new finding of pancreatic cancer. Patient has appointment next Tuesday with oncology services. He denies denies any abdominal pain no nausea or vomiting diarrhea. He is concerned that he is constipated. Again no pain. Last bowel movement was Tuesday. Patient denies any back pain or chest pain. After history and exam CBC CMP EKG CT chest abdomen pelvis normal saline [facility] CC: Constipation Complicating co-morbidities: Recent pancreatic cancer finding Data collected from: Patient Medical records reviewed: June 03, [address] scan imaging Differential considered: Includes but not limited to bowel obstruction constipation pancreatic cancer Exam documented above, pertinent findings include: Nontender abdomen Lab Test results independently reviewed as above. Pertinent findings: WBC 14.7 sodium 137 potassium 3.6 BUN 24 GFR 58 glucose 133 AST 68 ALT 60 alkaline phosphatase 314 lipase 188 Independently reviewed EKG sinus rhythm rate [address] elevation or depression Imaging studies independently reviewed: CT abdomen pelvis unchanged from previous CT scan a few days ago Consultations: None indicated Treatments: Normal saline Re-evaluations: 2:45 p.m.. Reviewed results with patient. CT imaging unchanged. No constipation seen on CT. Patient states he will increase fiber in his diet. We did review food groups with fruits and vegetables and salads. Return precautions reviewed. Copies of CTs reports sent with patient as he requested. Return precautions reviewed. Nontoxic at discharge. He desires discharge home. Patient did request refill for Zofran Discussion: Appropriate for discharge home Patient here for essentially evaluation for constipation although he denies any abdominal pain. He just states that he has not had a bowel movement since Tuesday. A few days ago. Exam is reassuring. Imaging is unchanged. Return precautions reviewed. He has appointment with Oncology next Tuesday. He desires discharge home Diagnosis: Medical screening Discharge Plan Departure Patient Disposition: Home Clinical Impression: Encounter for medical screening examination Instructions: DI for Constipation Activity Restrictions/Additional Instructions: Please see the oncologist next Tuesday as scheduled. Please see family doctor in a week for re-evaluation. Keep well hydrated. Increase dietary salads vegetables fruits to promote good bowel movements. Drink plenty of water. Return if worse if any questions or concerns. Your laboratory studies are reassuring at this time. CT scan imaging unchanged from previous CT scan a few days ago. Prescriptions: New ondansetron 4 mg tablet,disintegrating 4 mg PO Q8H PRN (Reason: nausea and vomiting) Qty: 20 0RF No Action rivaroxaban [Xarelto] 20 mg tablet 20 mg PO DAILY latanoprost [Xalatan] 0.005 % drops 1 drp OPHTH HS Qty: 0 fluticasone propion-salmeterol [Advair Diskus] 250 MCG/50 MCG blister with device 1 puff INH BID Qty: 3 1RF lisinopril 20 MG tablet 20 mg PO QDAY Qty: 90 1RF potassium chloride [K-Tab] 10 MEQ tablet extended release 20 meq PO QDAY Qty: 180 1RF metoprolol tartrate 50 MG tablet 50 mg PO BID Qty: 180 1RF magnesium oxide 400 MG tablet 400 mg PO Qty: 0 allopurinol 300 MG tablet 300 mg PO QDAY Qty: 90 1RF furosemide 40 MG tablet 40 mg PO QDAY Qty: 90 1RF cyanocobalamin (vitamin B-12) 1,000 MCG tablet extended release 1,000 mcg PO Qty: 0 atorvastatin [Lipitor] 20 MG tablet 20 mg PO QDAY Qty: 30 0RF ondansetron 4 mg tablet,disintegrating 4 mg PO Q8H Qty: 10 0RF ondansetron 4 mg tablet,disintegrating 4 mg PO Q8H Qty: 15 0RF Referrals: Marco Antonio Islas MD [Family Provider] - Stand Alone Forms: Patient Portal/API
== END 2023-06-08 14:30 | disposition home or self-care (01) ==
PROVIDERS: Emergency Provider Emergency Medicine; Family Provider Family Medicine
DX: K59.00 Constipation, unspecified (principal); C25.9 Malignant neoplasm of pancreas, unspecified; Z79.899 Other long term (current) drug therapy
CPT/HCPCS: 36415; 74177; 80053; 81003; 81015; 83690; 85025; 93005; 93010; 96360; 96361; 99284

== ENCOUNTER 2023-06-23 07:49 | Emergency (ER) | payer MEDICARE, OTHER, SELFPAY ==
--- NOTE | 2023-06-23 08:04 | ED_ITS ---
HPI - General Adult General Chief complaint: GI Bleed Stated complaint: bleeding, per pt possible hemorrhoids Time Seen by Provider: 06/23/23 08:01 History of Present Illness HPI narrative: 82-year-old gentleman diagnosed with pancreatic cancer on June 02, hyperlipidemia, hypertension, coronary artery disease, congestive heart failure, anticoagulated for history of paroxysmal atrial flutter, asthma for which he uses an Advair Diskus and albuterol without a spacer presents with 2-3 days of increasing red blood on toilet tissue as he is wiping. Earlier this month he had some significant constipation, as he is dealt with his nausea and is able to eat found that the constipation has resolved now is very loose to peanut butter consistency not causing any pain. He continues to work with his oncologist with a recent cancer diagnosis. He has describing no fevers, chills, dizziness, chest pain or palpitations. He notes that his asthma has been bothering him a bit more, this has been a lifelong issue for him Related Data Home Medications Medication Instructions Recorded Confirmed latanoprost 0.005 % eye drops [address] [facility] ##0 03/13/12 05/15/21 (Xalatan) magnesium oxide 400 mg (241.3 mg 400 mg PO ##0 07/16/16 05/15/21 magnesium) tablet cyanocobalamin (vitamin B-12) 1,000 mcg PO ##0 10/21/16 05/15/21 1,000 mcg tablet,extended release rivaroxaban 20 mg tablet (Xarelto) 20 mg PO DAILY 12/26/17 05/15/21 Previous Rx's Medication Instructions Recorded fluticasone 250 mcg-salmeterol 50 1 puff INH BID #3 puffs 10/20/16 mcg/dose blistr powdr for inhalation (Advair Diskus) lisinopril 20 mg tablet 20 mg PO QDAY #90 tabs 07/14/16 metoprolol tartrate 50 mg tablet 50 mg PO BID #180 tabs 07/14/16 potassium chloride 10 mEq 20 meq (2 x 10 mEq) PO QDAY #180 07/14/16 tablet,extended release (K-Tab) tabs allopurinol 300 mg tablet 300 mg PO QDAY #90 tabs 08/18/16 furosemide 40 mg tablet 40 mg PO QDAY #90 tabs 10/11/16 atorvastatin 20 mg tablet (Lipitor) 20 mg PO QDAY #30 tabs 12/13/16 ondansetron 4 mg disintegrating 4 mg PO Q8H #10 tabs 06/03/23 tablet ondansetron 4 mg disintegrating 4 mg PO Q8H #15 tabs 06/03/23 tablet ondansetron 4 mg disintegrating 4 mg PO Q8H PRN nausea and 06/08/23 tablet vomiting #20 tabs hydrocortisone 2.5 % topical cream 1 applic AR BID-QID PRN 06/23/23 with perineal applicator hemorrhoids #30 grams (Anusol-HC) Allergies Allergy/AdvReac Type Severity Reaction Status Date / Time No Known Drug Allergies Allergy Unverified 06/29/21 10:31 Review of Systems Review of Systems Narrative: Pertinent positive and negative findings as per HPI Patient History Medical History (Updated 06/23/23 @ 08:39 by Elham Rey MD) Paroxysmal atrial flutter Pancreatic cancer BPH (benign prostatic hyperplasia) Hyperlipidemia Hypertension Asthma exacerbation Surgical History Status post knee surgery Family History Father Heart disease Mother Heart disease Social History Smoking Status: Never smoker alcohol intake: current Smoking Status: Never smoker Substance Use Type: does not use Exam Initial Vital Signs Initial Vital Signs: Vital Signs Temperature 98.2 F 06/23/23 08:11 Pulse Rate 110 H 06/23/23 08:11 Respiratory Rate 22 06/23/23 08:11 Blood Pressure 158/74 H 06/23/23 08:11 Pulse Oximetry 96 06/23/23 08:11 Oxygen Delivery Method Room Air 06/23/23 08:11 General: Healthy appearing, in no acute distress. Able to give a complete and coherent history. Well-nourished well-developed HEENT: Moist mucous membranes, normal sclera with reactive pupils, Respiratory: Lungs, no wheezing Full and symmetrical air movement Cardiac: Regular rate and rhythm Skin: Warm and dry, no rashes, no significant pallor Neurologic: Grossly neurologically intact with no obvious asymmetries or abnormalities Psych: Cooperative, appropriate insight and affect Rectal: Minor thrombosed hemorrhoid at 2:00 that is not tender. No other significant perianal irritation, ulceration or skin breakdown Course Orders Ordered: ED Orders 06/23/23 08:08 Complete Blood Count AUTO DIFF Stat Comprehensive Metabolic Panel Stat Vital Signs Vital signs: Vital Signs - 8 hr 06/23/23 08:11 Temperature 98.2 F Pulse Rate 110 H Respiratory Rate 22 Blood Pressure 158/74 H Pulse Oximetry 96 Oxygen Delivery Method Room Air Medical Decision Making Lab Data 06/23/23 08:08 06/23/23 08:08 Labs: Lab Results 06/23/23 Range/Units 08:08 WBC 18.3 H (4.5-11.0) X10^3/uL RBC 4.22 L (4.5-5.9) X10^6/uL Hgb 13.1 L (13.5-17.5) g/dL Hct 39.7 L (41-53) % MCV 94.1 (80-100) fL MCH 31.1 (26-34) PG MCHC 33.1 (30-36) % RDW 13.6 (11.6-14.8) % Plt Count 233 (150-400) X10^3/uL Neut % (Auto) 70.4 (50-75) % Lymph % (Auto) 13.7 L (25-40) % [place] % (Auto) 12.9 (3-14) % Eos % (Auto) 2.3 (2-4) % Baso % (Auto) 0.7 (0-2) % Neut # (Auto) 19509 H (9439-4057) /uL Lymph # (Auto) 2500 (4352-5709) /uL [place] # (Auto) 2400 H (0-900) /uL Eos # (Auto) 400 (0-450) /uL Baso # (Auto) 100 (0-100) /uL Sodium 136 L (137-145) mmol/L Potassium 4.4 (3.4-5.1) mmol/L Chloride 98 (98-107) mmol/L Carbon Dioxide 31 (22-32) mmol/L BUN 28 H (9-20) mg/dL Creatinine 1.01 (0.66-1.25) mg/dL Estimated GFR > 60 (>60) mL/min BUN/Creatinine Ratio 27.7 H (6-22) Glucose 122 H (80-110) mg/dL Calcium 8.9 (8.4-10.2) mg/dL Total Bilirubin 1.8 H (0.2-1.3) mg/dL AST 92 H (17-59) IU/L ALT 78 H (<50) IU/L Alkaline Phosphatase 617 H (38-126) U/L Total Protein 7.2 (6.3-8.2) g/dL Albumin 3.8 (3.5-5.0) g/dL Globulin 3.4 (1.7-4.1) g/dL Albumin/Globulin Ratio 1.1 (1.0-2.8) MDM Narrative Medical decision making narrative: CC: Bright red blood with wiping after soft bowel movement, no blood in the stool Complicating co-morbidities: Anticoagulated on Xarelto, recent episodes of constipation now resolved, recent diagnosis of pancreatic cancer, asthma Data collected from: patient Medical records reviewed: Reviewed recent ER visits with CT scan, diagnosis of pancreatic cancer and constipation Differential considered: Internal hemorrhoids, external hemorrhoids, upper GI bleeding, diverticular bleed Exam documented above, pertinent findings include: Exam is reassuringly benign Lab Test results independently reviewed as above. Pertinent findings: CBC shows slight leukocytosis without any left shift and no infectious disease complaints. His H&H has decreased slightly from a hemoglobin of 14 0.6-13.1. Chemistries normal renal function but progressing of LFTs consistent with his recently diagnosed metastatic cancer with numerous metastatic liver lesions Independently reviewed EKG: EKG shows sinus rhythm, leftward axis, PAC, no acute ischemic changes Discussion: 82-year-old gentleman with what sounds like internal hemorrhoids with a minor amount of bleeding. No significant change to H&H. He has been using external preparation H, we will give him Anusol HC for internal application. Recommended that he not use any medications to try to slow his bowels or reverse the ?peanut butter consistency? stool that he is having. Explained the difference between internal external hemorrhoids, reason for bleeding especially in light of the Xarelto. Reassurance given regarding lab work. He does have follow up with his oncologist in the near future. Regarding his asthma and wheezing we again reviewed why using a spacer for his albuterol is important. He does have 1 at home and will give that a try and see if that is more effective than the MDI puff into his mouth directly. There is no evidence of severe anemia, severe asthma exacerbation or other issue that would indicate further workup, advanced imaging or hospitalization at this time. He is free for discharge Discharge Plan Departure Patient Disposition: Home Clinical Impression: Bleeding internal hemorrhoids Instructions: DI for Hemorrhoids Activity Restrictions/Additional Instructions: Thank you for coming in today I believe you have developed some internal hemorrhoids, these are causing the bleeding with your bowel movements. I have given you a prescription for hydrocortisone cream that has not applicator that goes inside your rectum so that the cream is applied against the internal hemorrhoids and can help reduce the inflammation. I would recommend using this 2 to 3 times a day for the next week or until symptoms are significantly improved. You can buy some medicated hemorrhoid pads such as brand-name Tucks or which Tali pads. These can help with tenderness and inflammation on the outside. There for symptomatic relief. Regarding your asthma, I would find this spacer that you received while you are in the hospital. Using that with your albuterol MDI significantly increases the amount of medicine that is actually delivered to your lungs where it is helpful. If you find that you are getting worse or develop any new symptoms, please feel free to return to the emergency department for further evaluation. Prescriptions: New hydrocortisone [Anusol-HC] 2.5 % cream with perineal applicator 1 applic AR BID-QID PRN (Reason: hemorrhoids) Qty: 30 0RF No Action rivaroxaban [Xarelto] 20 mg tablet 20 mg PO DAILY latanoprost [Xalatan] 0.005 % drops 1 drp OPHTH HS Qty: 0 fluticasone propion-salmeterol [Advair Diskus] 250 MCG/50 MCG blister with device 1 puff INH BID Qty: 3 1RF lisinopril 20 MG tablet 20 mg PO QDAY Qty: 90 1RF potassium chloride [K-Tab] 10 MEQ tablet extended release 20 meq PO QDAY Qty: 180 1RF metoprolol tartrate 50 MG tablet 50 mg PO BID Qty: 180 1RF magnesium oxide 400 MG tablet 400 mg PO Qty: 0 allopurinol 300 MG tablet 300 mg PO QDAY Qty: 90 1RF furosemide 40 MG tablet 40 mg PO QDAY Qty: 90 1RF cyanocobalamin (vitamin B-12) 1,000 MCG tablet extended release 1,000 mcg PO Qty: 0 atorvastatin [Lipitor] 20 MG tablet 20 mg PO QDAY Qty: 30 0RF ondansetron 4 mg tablet,disintegrating 4 mg PO Q8H Qty: 10 0RF ondansetron 4 mg tablet,disintegrating 4 mg PO Q8H Qty: 15 0RF ondansetron 4 mg tablet,disintegrating 4 mg PO Q8H PRN (Reason: nausea and vomiting) Qty: 20 0RF Stand Alone Forms: Patient Portal/API
[2023-06-23 08:11] VITALS: BP 158/74; PULSE 110; RESP 22; TEMP 36.8; O2SAT 96; BMI 30.9
[2023-06-23 08:37] LABS: Add Manual Diff / Slide Review NO; Basophils Absolute Auto 100 /uL (0-100); Basophils Percent Auto 0.7 % (0-2); Eosinophils Absolute Auto 400 /uL (0-450); Eosinophils Percent Auto 2.3 % (2-4); Hematocrit 39.7 % (41-53); Hemoglobin 13.1 g/dL (13.5-17.5); Lymphocytes Absolute Auto 2500 /uL (1100-4500); Lymphocytes Percent Auto 13.7 % (25-40); Mean Corpuscular HGB Conc 33.1 % (30-36); Mean Corpuscular Hemoglobin 31.1 PG (26-34); Mean Corpuscular Volume 94.1 fL (80-100); Monocytes Absolute Auto 2400 /uL (0-900); Monocytes Percent Auto 12.9 % (3-14); Neutrophils Absolute Auto 12900 /uL (1500-7000); Neutrophils Percent Auto 70.4 % (50-75); Platelet Count 233 X10^3/uL (150-400); Red Blood Cell Count 4.22 X10^6/uL (4.5-5.9); Red Cell Distribution Width 13.6 % (11.6-14.8); White Blood Cell Count 18.3 X10^3/uL (4.5-11.0)
[2023-06-23 08:42] LABS: Alanine Aminotransferase 78 IU/L (<50); Albumin 3.8 g/dL (3.5-5.0); Albumin Globulin Ratio 1.1 (1.0-2.8); Alkaline Phosphatase 617 U/L (38-126); Aspartate Aminotransferase 92 IU/L (17-59); BUN Creatinine Ratio 27.7 (6-22); Bilirubin Total 1.8 mg/dL (0.2-1.3); Blood Urea Nitrogen 28 mg/dL (9-20); Calcium 8.9 mg/dL (8.4-10.2); Carbon Dioxide 31 mmol/L (22-32); Chloride 98 mmol/L (98-107); Estimated Glomerular Filt Rate > 60 mL/min (>60); Globulin 3.4 g/dL (1.7-4.1); Glucose 122 mg/dL (80-110); HEMOLYSIS 19 (0-50); Potassium 4.4 mmol/L (3.4-5.1); Sodium 136 mmol/L (137-145); Total Protein 7.2 g/dL (6.3-8.2)
[2023-06-23 08:57] VITALS: PULSE 75; RESP 19; O2SAT 96
[2023-06-23 09:00] VITALS: BP 106/59; PULSE 75; RESP 20; O2SAT 96
== END 2023-06-23 09:11 | disposition home or self-care (01) ==
PROVIDERS: Emergency Provider Emergency Medicine; Family Provider Family Medicine
DX: K64.8 Other hemorrhoids (principal); Z79.899 Other long term (current) drug therapy; Z79.01 Long term (current) use of anticoagulants
CPT/HCPCS: 80053; 85025; 93005; 99281; 99284